=== PATIENT | male | born 1980 | race African-American/Black ===

== ENCOUNTER 2020-01-02 16:42 | Outpatient (CLI) | payer SELFPAY ==
[2020-01-02 17:22] LABS: Basophils % 0.4 %; Eosinophils # 0.2 10^3/uL (0.0-0.8); Eosinophils % 2.8 %; Hematocrit 44.1 % (42.0-52.0); Hemoglobin 13.4 g/dL (11.7-16.6); Lymphocytes # 3.2 10^3/uL (0.8-4.8); Lymphocytes % 38.6 %; Mean Corpuscular HGB Conc 30.4 g/dL (30.0-36.0); Mean Corpuscular Hemoglobin 26.4 pg (28.0-34.0); Mean Platelet Volume 12.6 fL (7.4-10.4); Monocytes # 0.6 10^3/uL (0.2-0.9); Monocytes % 7.3 %; Neutrophils # 4.18 10^3/uL (1.8-7.7); Neutrophils % 50.5 %; Nucleated Red Blood Cells % 0 %; Platelet Count 151 10^3/cmm (130-400); Red Blood Count 5.07 10^6/uL (4.1-5.3); Red Cell Distribution Width 13.7 % (12.1-15.1); White Blood Count 8.3 10^3/uL (4.0-10.0)
[2020-01-02 17:49] LABS: Alanine Aminotransferase 21 U/L (0-41); Albumin Level 4.2 g/dL (3.5-5.2); Alkaline Phosphatase 53 IU/L (40-130); Anion Gap 11.4 (5-19); Aspartate Amino Transferase 21 U/L (0-40); Blood Urea Nitrogen 12 mg/dL (6-20); Calcium 9.8 mg/dL (8.5-10.5); Carbon Dioxide 29 mmol/L (22-29); Chloride 103 mmol/L (98-107); Free T4 Free Thyroxine 0.93 ng/dL (0.82-1.77); Globulin 2.9 g/dL (1.3-4.6); Glomerular Filtration Rate 101.2 mL/min (90-130); Glucose 113 mg/dL (65-115); Osmolality Calculated 285 mOsm/kg (285-295); Potassium 4.4 mmol/L (3.5-5.1); Sodium 139 mmol/L (136-145); Thyroid Stimulating Hormone 1.61 uIU/mL (0.27-4.20); Total Bilirubin 0.2 mg/dL (0.15-1.2); Total Protein 7.1 g/dL (6.6-8.7)
== END 2020-01-02 16:43 | disposition home or self-care (01) ==
LOC: LAB 16:42
PROVIDERS: Visit Provider General Practice
DX: R22.2 Localized swelling, mass and lump, trunk (principal)
CPT/HCPCS: 80053; 84439; 84443; 85025

== ENCOUNTER 2020-01-08 16:35 | Emergency (ER) | payer SELFPAY ==
[2020-01-08 16:45] VITALS: BP 143/75; PULSE 82; RESP 16; TEMP 36.2; O2SAT 100; BMI 25.7
--- NOTE | 2020-01-08 17:14 | W.ED.BACK ---
HPI - Back Pain/Injury General: Chief Complaint: Back Pain/Injury Stated Complaint: back pain, lump on back Time Seen by Provider: 01/08/20 17:05 History of Present Illness: HPI Narrative: Patient is a 39-year-old male who comes to the ED with small lump on right side of thoracic back. Lump is tender and has been present for the last 2 weeks. Patient also has some swollen nodules on the front part of his neck that have been for the last 2 weeks as well. They are mildly tender. He denies any recent illnesses or sicknesses. Denies fever, chills, shortness of breath, nausea/vomiting, bladder or bowel symptoms. Associated symptoms: Deny abdominal pain, chills, dysuria, fatigue, fever(s), hematuria, nausea or vomiting Review of Systems Const: Denies: fever(s), chills or fatigue Eyes: Denies: change in vision or eye discomfort ENMT: Denies: throat pain, odynophagia, nasal discharge or nasal congestion Card: Denies: chest pain, palpitations, edema, swelling of feet/ankles, dyspnea on exertion or orthopnea Resp: Denies: dyspnea, productive cough or non-productive cough GI: Denies: abdominal pain, nausea, vomiting, diarrhea, constipation or hematochezia : Denies: flank pain, difficulty urinating, dysuria or hematuria Musc: Denies: neck pain, back pain or extremity swelling Skin/Breast: Denies: rash or new lesions Neuro: Denies: headache(s), numbness in extremities or weakness in extremities Dennis/Lymph: Reports: tender lymph nodes (anterior part of neck and ) PFS ED PFSH: Social History Smoking and tobacco status: light tobacco smoker Alcohol intake: never Substance/Drug Use: former Physical Exam Const: COMMON NORMALS: no acute distress, patient oriented x3, healthy appearing and alert GENERAL APPEARANCE: cooperative and comfortable HENMT: COMMON NORMALS: normocephalic HEAD & SCALP: normocephalic MOUTH: Normal oral and palatal mucosa present THROAT: posterior oropharynx normal and uvula midline Eye: COMMON NORMALS: Equal, round and reactive pupils present PUPIL: Yes Equal, round and reactive pupils present Neck/C-Spine: COMMON NORMALS: supple GENERAL: Yes normal visual inspection Lymph: LYMPHATIC: lymphadenopathy (Patient had palpable mildly tender lymph nodes anterior and posterior cervical chain. Patient also had a palpable lymph node on the right side of back.) OTHER: Lymph nodes are small and mobile. Resp: COMMON NORMALS: normal respiratory effort, No retractions, No use of accessory muscles and clear to auscultation bilaterally AUSCULTATION: clear to auscultation bilaterally Cardio: COMMON NORMALS: regular rate, regular rhythm, S1 normal heart sound present, S2 normal heart sound present, No gallops present (Cardio), No clicks present (Cardio), No murmurs present (Cardio) and Peripheral pulses 2+ throughout RATE: regular rate RHYTHM: regular rhythm HEART SOUNDS: S1 normal heart sound present and S2 normal heart sound present PERIPHERAL PULSES: Peripheral pulses 2+ throughout GI: COMMON NORMALS: Normal to inspection, nondistended, normoactive bowel sounds present, Soft to palpation, non-tender and no masses PALPATION: Yes Soft to palpation : COMMON NORMALS: Yes no CVA tenderness BLADDER/KIDNEY EXAM: Yes no CVA tenderness Back/Pelvis: COMMON NORMALS: no CVA tenderness Extremity: COMMON NORMALS: normal to inspection and no pedal edema Neuro: COMMON NORMALS: patient oriented x3 and moves all extremities SENSORIUM/ORIENTATION: Yes alert Skin: COMMON NORMALS: no rashes or lesions noted GENERAL SKIN EXAM: no rashes or lesions noted and dry skin Course Vital Signs: Vital signs: Vital Signs Temperature 97.1 F L 01/08/20 16:45 Pulse Rate 78 01/08/20 18:14 Respiratory Rate 18 01/08/20 18:14 Blood Pressure 144/72 01/08/20 18:14 Pulse Oximetry 99 01/08/20 18:14 MDM - Back Pain/Injury MDM Narrative: Medical decision making narrative: Patient is a 39-year-old male who comes to the ED with swollen and tender lymph nodes. Denies any other symptoms. Lymph nodes were palpable on the anterior and posterior cervical chains of neck and 1 palpable tender lymph node on the right side of back. Lymph nodes are small and mobile. Patient diagnosed with reactive lymphadenitis and sent home with a prescription for Augmentin and prednisone. He was told to follow-up with his PCP in the next 7 to 10 days for reevaluation. Return to ED precautions given. patient understood and agreed with plan. Discharge Plan Discharge Patient Disposition: Home Clinical Impression: Lymphadenitis Condition: Stable Prescriptions: New Augmentin 500-125 mg tablet 1 tab PO BID 7 Days Qty: 14 RF: 0 prednisone 20 mg tablet 20 mg PO TID 5 Days Qty: 15 RF: 0 No Action No Known Home Medications RF: 0 Discharge Orders: Discharge Order (Routine); Ordered 01/08/20 Ordered By: Leonidas Delaney Discharge Diet: Regular Discharge Activity: Resume usual activity Patient Instructions: Lymphadenitis Activity Restrictions/Additional Instructions: Follow-up with medical provider as directed in 7 days. Take medications as prescribed. Return to the ER or your medical provider if condition worsens. Please read and understand discharge instructions. If any questions, please ask. Discharge Date/Time: 01/08/20 18:18 Coding Level of Care Code ED Ammunition Components Inspector for Mitch Fwd Exam Comprehensive
[2020-01-08] MEDS: predniSONE 20 mg Tablet 60 MG PO (17:59)
[2020-01-08] MEDS: amoxicillin-clav 500-125 mg Tablet 1 TAB PO (17:59)
[2020-01-08 18:14] VITALS: BP 144/72; PULSE 78; RESP 18; O2SAT 99
== END 2020-01-08 18:18 | disposition home or self-care (01) ==
PROVIDERS: Emergency Provider Physician Assistant
DX: I88.9 Nonspecific lymphadenitis, unspecified (principal); F17.210 Nicotine dependence, cigarettes, uncomplicated
CPT/HCPCS: 12345; 99281; 99283; J7512

== ENCOUNTER 2020-09-26 14:31 | Emergency (ER) | payer SELFPAY ==
[2020-09-26 14:58] VITALS: BP 126/83; PULSE 114; RESP 18; TEMP 36.2; O2SAT 97; BMI 25.1
[2020-09-26 15:02] VITALS: BP 129/72; PULSE 100; RESP 18; O2SAT 98
--- NOTE | 2020-09-26 15:16 | W.ED.NAVMDI ---
HPI - Nausea/Vomiting/Diarrhea General: Chief complaint: Nausea/Vomiting/Diarrhea Stated complaint: NAUSEA, VOMITING, CHILLS AND DIAREAH Time Seen by Provider: 09/26/20 15:08 History of Present Illness: HPI Narrative: The patient is a 40-year-old male with no significant past medical history who comes to the ER complaining of flulike symptoms and diarrhea for the past 4 days. He says approximately 4 days ago he ate what he thought was raw pork and then developed a fever, chills, belly cramping, body aches, and diarrhea. The diarrhea has persisted through the entire 4 days. He had a headache for the first 2 days which has since resolved. He has not had Covid that he knows of and has not been vaccinated. He says he has no appetite and he does eat some however it runs right through him. Heart rate 114 on arrival MD elicited complaint: diarrhea and abdominal pain Onset (ago): day(s) (4) Description of diarrhea: lose Associated nausea: No Associated abdominal pain: Yes Location of pain: Diffuse Radiation: diffuse Pain consistency: intermittent Severity: moderate Quality: cramping Exacerbating factors: eating and bowel movement Relieving factors: none Context: possible food poisoning Associated symtoms: Reports fevers/chills, headache(s) and anorexia; Denies anxiety, change in vision, chest pain, fatigue, nausea or palpitations Review of Systems General: Reports: 10 or more systems reviewed and unremarkable except in HPI and below Const: Reports: fever(s), chills and body aches; Denies: fatigue Eyes: Denies: change in vision, blurry vision or eye redness ENMT: Denies: throat pain, swelling of lips/tongue, ear or mastoid pain or nasal congestion Card: Denies: chest pain, palpitations, irregular heart rhythm, edema, dyspnea on exertion or orthopnea Resp: Denies: dyspnea, productive cough or non-productive cough GI: Reports: abdominal pain and diarrhea; Denies: nausea or vomiting : Denies: flank pain, urinary frequency or urinary urgency Musc: Denies: neck pain, back pain, extremity pain, joint pain, joint redness, limited range of motion or muscle weakness Skin/Breast: Denies: rash, pruritus, erythema, skin pain or skin tenderness Neuro: Reports: headache(s) Psych: Denies: anxiety or depression Endo: Denies: polyuria All/Imm: Denies: urticaria, throat swelling or tongue swelling PFSH ED PFSH: Social History Smoking and tobacco status: light tobacco smoker Alcohol intake: never Physical Exam Const: COMMON NORMALS: no acute distress, average body habitus, patient oriented x3, no limitations, healthy appearing, alert and well nourished GENERAL APPEARANCE: cooperative, comfortable, well kempt and well developed ORIENTATION/CONSCIOUSNESS: Yes awake, Yes oriented to person, Yes oriented to place and Yes oriented to time HENMT: COMMON NORMALS: normocephalic, external ears normal and Normal external nose present HEAD & SCALP: normal to inspection and normocephalic NOSE: Normal external nose present EXTERNAL EAR: Yes external ears normal MOUTH: Normal oral and palatal mucosa present THROAT: posterior oropharynx normal Eye: COMMON NORMALS: Equal, round and reactive pupils present and EOMs intact bilaterally GENERAL EYE: appearance normal, both eyes and all related structures PUPIL: Yes Equal, round and reactive pupils present Neck/C-Spine: COMMON NORMALS: full ROM, no lymphadenopathy, no meningeal signs and no JVD GENERAL: Yes normal visual inspection Lymph: LYMPHATIC: no lymphadenopathy noted Chest: COMMONS NORMALS: normal inspection of the chest and normal palpation of entire chest wall Resp: COMMON NORMALS: normal respiratory effort, No retractions, No use of accessory muscles, clear to auscultation bilaterally and percussion normal EFFORT & INSPECTION: Yes able to speak in complete sentences AUSCULTATION: clear to auscultation bilaterally PERCUSSION: percussion normal Cardio: COMMON NORMALS: no JVD, regular rhythm, S1 normal heart sound present, S2 normal heart sound present and Peripheral pulses 2+ throughout RATE: tachycardic RHYTHM: regular rhythm HEART SOUNDS: S1 normal heart sound present and S2 normal heart sound present PERIPHERAL PULSES: Peripheral pulses 2+ throughout GI: COMMON NORMALS: Normal to inspection, nondistended, normoactive bowel sounds present, Soft to palpation, non-tender and no masses INSPECTION: Yes normal to inspection PALPATION: Yes Soft to palpation : COMMON NORMALS: Yes no CVA tenderness BLADDER/KIDNEY EXAM: Yes no CVA tenderness Back/Pelvis: COMMON NORMALS: no CVA tenderness, thoracic and lumbar spine normal to inspection, no thoracic nor lumbar tenderness and thoraco-lumbar ROM normal Extremity: COMMON NORMALS: normal to inspection, full ROM, capillary refill normal, no joint enlargement and no pedal edema GENERAL: Yes normal exam except as noted Neuro: COMMON NORMALS: patient oriented x3, CN's II-XII intact bilaterally, moves all extremities, no focal motor deficits, no sensory deficits noted and gait normal SENSORIUM/ORIENTATION: Yes alert, Yes oriented to person, Yes oriented to place and Yes oriented to time MENINGEAL SIGNS: Yes no meningeal signs Psych: COMMON NORMALS: mental status grossly normal, Normal thought process present, cooperative, normal affect and speech normal APPEARANCE: Yes well kempt ATTITUDE: Yes calm SPEECH: Yes normal speech THOUGHT PROCESS: Normal thought process present Skin: COMMON NORMALS: no rashes or lesions noted GENERAL SKIN EXAM: no rashes or lesions noted Course Vital Signs: Vital signs: Vital Signs Temperature 97.2 F L 09/26/20 14:58 Pulse Rate 100 09/26/20 15:51 Respiratory Rate 18 09/26/20 15:51 Blood Pressure 129/76 09/26/20 15:51 Pulse Oximetry 98 09/26/20 15:51 MDM - Nausea/Vomiting/Diarrhea MDM Narrative: Medical decision making narrative: Patient comes in with viral syndrome and diarrhea. Blood work was mostly normal except mildly elevated white count. He was given a liter of fluids, Toradol and his abdominal cramping subsided. He has never been tender in his belly. Recommended returning to the ER with worsening symptoms for a belly CT to check his appendix. He has no abdominal tenderness and feels better. Stable for discharge. Follow-up with primary in 2 days to monitor improvement of symptoms. ER with worsening symptoms at any time Lab Data: Labs: Lab Results 09/26/20 09/26/20 09/26/20 Range/Units 15:16 15:16 15:16 WBC 12.1 H (4.0-10.0) 10^3/ uL RBC 5.34 H (4.1-5.3) 10^6/u L Hgb 14.2 (11.7-16.6) g/dL Hct 43.9 (42.0-52.0) % MCV 82.2 (80-94) fL MCH 26.6 L (28.0-34.0) pg MCHC 32.3 (30.0-36.0) g/dL RDW 12.9 (12.1-15.1) % Plt Count 163 (130-400) 10^3/c mm MPV 11.1 H (7.4-10.4) fL Neut % (Auto) 74.4 % Lymph % (Auto) 14.2 % Canyon % (Auto) 10.8 % Eos % (Auto) 0.2 % Baso % (Auto) 0.2 % Neut # (Auto) 9.03 H (1.8-7.7) 10^3/u L Lymph # (Auto) 1.7 (0.8-4.8) 10^3/u L Canyon # (Auto) 1.3 H (0.2-0.9) 10^3/u L Eos # (Auto) 0.0 (0.0-0.8) 10^3/u L Baso # (Auto) 0.0 (0.0-0.1) 10^3/u L Nucleated RBC % (a uto) 0 % Nucleated RBCs # 0.0 /100WBC Sodium 134 L (136-145) mmol/L Potassium 3.8 (3.5-5.1) mmol/L Chloride 98 (98-107) mmol/L Carbon Dioxide 26 (22-29) mmol/L Anion Gap 13.8 (5-19) BUN 9 (6-20) mg/dL Creatinine 1.0 (0.7-1.2) mg/dL GFR Calculation 100.7 (90-130) mL/min Glucose 134 H (65-115) mg/dL Calculated Osmolal ity 279 L (285-295) mOsm/k g Lactate 1.2 (0.5-2.2) mmol/L Calcium 8.8 (8.5-10.5) mg/dL Total Bilirubin 0.3 (0.15-1.2) mg/dL AST 22 (0-40) U/L ALT 15 (0-41) U/L Alkaline Phosphata se 44 (40-130) IU/L Total Protein 7.1 (6.6-8.7) g/dL Albumin 4.0 (3.5-5.2) g/dL Globulin 3.1 (1.3-4.6) g/dL Lipase 49 (13-60) U/L Urine Color (Yellow) Urine Appearance (CLEAR) Urine pH (5-7) Ur Specific Gravit y (1.005-1.030) Urine Protein (Negative) Urine Glucose (UA) (Normal) Urine Ketones (Negative) Urine Blood (Negative) Urine Nitrate (Negative) Urine Bilirubin (Negative) Urine Urobilinogen (Negative) mg/dL Ur Leukocyte Brenna ase (Negative) SARS-CoV-2 Ag (Rap id) (Negative) 09/26/20 09/26/20 Range/Units 15:30 15:55 WBC (4.0-10.0) 10^3/ uL RBC (4.1-5.3) 10^6/u L Hgb (11.7-16.6) g/dL Hct (42.0-52.0) % MCV (80-94) fL MCH (28.0-34.0) pg MCHC (30.0-36.0) g/dL RDW (12.1-15.1) % Plt Count (130-400) 10^3/c mm MPV (7.4-10.4) fL Neut % (Auto) % Lymph % (Auto) % Canyon % (Auto) % Eos % (Auto) % Baso % (Auto) % Neut # (Auto) (1.8-7.7) 10^3/u L Lymph # (Auto) (0.8-4.8) 10^3/u L Canyon # (Auto) (0.2-0.9) 10^3/u L Eos # (Auto) (0.0-0.8) 10^3/u L Baso # (Auto) (0.0-0.1) 10^3/u L Nucleated RBC % (a uto) % Nucleated RBCs # /100WBC Sodium (136-145) mmol/L Potassium (3.5-5.1) mmol/L Chloride (98-107) mmol/L Carbon Dioxide (22-29) mmol/L Anion Gap (5-19) BUN (6-20) mg/dL Creatinine (0.7-1.2) mg/dL GFR Calculation (90-130) mL/min Glucose (65-115) mg/dL Calculated Osmolal ity (285-295) mOsm/k g Lactate (0.5-2.2) mmol/L Calcium (8.5-10.5) mg/dL Total Bilirubin (0.15-1.2) mg/dL AST (0-40) U/L ALT (0-41) U/L Alkaline Phosphata se (40-130) IU/L Total Protein (6.6-8.7) g/dL Albumin (3.5-5.2) g/dL Globulin (1.3-4.6) g/dL Lipase (13-60) U/L Urine Color Yellow (Yellow) Urine Appearance Clear (CLEAR) Urine pH 5 (5-7) Ur Specific Gravit y 1.025 (1.005-1.030) Urine Protein Neg (Negative) Urine Glucose (UA) Norm (Normal) Urine Ketones Negative (Negative) Urine Blood Neg (Negative) Urine Nitrate Negative (Negative) Urine Bilirubin Neg (Negative) Urine Urobilinogen Norm (Negative) mg/dL Ur Leukocyte Brenna ase Negative (Negative) SARS-CoV-2 Ag (Rap id) Negative (Negative) Discharge Plan Discharge Patient Disposition: Home Clinical Impression: Gastroenteritis Condition: Stable Prescriptions: No Action No Known Home Medications RF: 0 Discharge Orders: Discharge ED (Routine); Ordered 09/26/20 Ordered By: Jaren Guzman Discharge Diet: Advance as tolerated Discharge Activity: Resume usual activity Patient Instructions: Gastroenteritis (ED), Viral Syndrome (ED), Opioid Safety Activity Restrictions/Additional Instructions: You came in complaining of 4 days of fever, chills, abdominal cramping and diarrhea. These are consistent with a viral syndrome. Please take Tylenol and ibuprofen at home as well as make sure you drink lots of water to stay hydrated. If your belly starts to hurt you please return to the ER and get a CAT scan to make sure your appendix and abdomen is fine. Follow-up with your primary care physician in 2 days to monitor improvement of your symptoms and return to the ER at any time with worrisome or worsening symptoms Coding Level of Care Code ED Conveyor Tender for Mitch Fong Exam Comprehensive
[2020-09-26] MEDS: ketorolac 30 mg/mL INJ 15 MG IVP (15:20)
[2020-09-26] MEDS: sodium chloride 0.9% 1,000 ML 999 ML IV (15:20)
[2020-09-26 15:22] LABS: Basophils % 0.2 %; Eosinophils % 0.2 %; Hematocrit 43.9 % (42.0-52.0); Hemoglobin 14.2 g/dL (11.7-16.6); Lymphocytes # 1.7 10^3/uL (0.8-4.8); Lymphocytes % 14.2 %; Mean Corpuscular HGB Conc 32.3 g/dL (30.0-36.0); Mean Corpuscular Hemoglobin 26.6 pg (28.0-34.0); Mean Corpuscular Volume 82.2 fL (80-94); Mean Platelet Volume 11.1 fL (7.4-10.4); Monocytes # 1.3 10^3/uL (0.2-0.9); Monocytes % 10.8 %; Neutrophils # 9.03 10^3/uL (1.8-7.7); Neutrophils % 74.4 %; Nucleated Red Blood Cells % 0 %; Platelet Count 163 10^3/cmm (130-400); Red Blood Count 5.34 10^6/uL (4.1-5.3); Red Cell Distribution Width 12.9 % (12.1-15.1); White Blood Count 12.1 10^3/uL (4.0-10.0)
[2020-09-26 15:51] VITALS: BP 129/76; PULSE 100; RESP 18; O2SAT 98
[2020-09-26 15:53] LABS: Alanine Aminotransferase 15 U/L (0-41); Alkaline Phosphatase 44 IU/L (40-130); Anion Gap 13.8 (5-19); Aspartate Amino Transferase 22 U/L (0-40); Blood Urea Nitrogen 9 mg/dL (6-20); Calcium 8.8 mg/dL (8.5-10.5); Carbon Dioxide 26 mmol/L (22-29); Chloride 98 mmol/L (98-107); Globulin 3.1 g/dL (1.3-4.6); Glomerular Filtration Rate 100.7 mL/min (90-130); Glucose 134 mg/dL (65-115); Lipase 49 U/L (13-60); Osmolality Calculated 279 mOsm/kg (285-295); Potassium 3.8 mmol/L (3.5-5.1); Sodium 134 mmol/L (136-145); Total Bilirubin 0.3 mg/dL (0.15-1.2); Total Protein 7.1 g/dL (6.6-8.7)
[2020-09-26 15:53] LABS: Add Urine Microscopic? NO; Charge for UA Resulting for Rev
[2020-09-26 15:54] LABS: Lactate (Lactic Acid level) 1.2 mmol/L (0.5-2.2)
[2020-09-26 16:09] LABS: Bilirubin Urine Neg (Negative); Blood Urine Neg (Negative); Glucose Urine UA Norm (Normal); Ketones Urine Negative (Negative); Leukocyte Esterase Urine Negative (Negative); Nitrate Urine Negative (Negative); Protein Urine Neg (Negative); Specific Gravity, Urine 1.025 (1.005-1.030); Urine Appearance Clear (CLEAR); Urine Color Yellow (Yellow); Urobilinogen Urine Norm (Negative); pH Urine 5 (5-7)
[2020-09-26 16:37] LABS: SARS Covid-2 Antigen Negative (Negative)
[2020-09-26 17:33] VITALS: BP 123/68; PULSE 90; RESP 18; TEMP 36.4; O2SAT 99
== END 2020-09-26 17:35 | disposition home or self-care (01) ==
PROVIDERS: Emergency Provider Family Medicine
DX: K52.9 Noninfective gastroenteritis and colitis, unspecified (principal); F17.210 Nicotine dependence, cigarettes, uncomplicated
CPT/HCPCS: 80053; 81003; 83605; 83690; 85025; 87426; 96361; 96374; 99283; J1885; J7030

== ENCOUNTER 2021-01-02 12:01 | Emergency (ER) | payer SELFPAY ==
[2021-01-02 12:09] VITALS: BP 132/72; PULSE 74; RESP 9; TEMP 37.4; O2SAT 99; BMI 25.7
--- NOTE | 2021-01-02 12:20 | ED_ITS ---
HPI - Dental/Oral General: Chief complaint: Dental/Oral Stated complaint: TOOTH ACHE/INFECTION Time Seen by Provider: 01/02/21 12:09 History of Present Illness: HPI Narrative: Tooth been bothering for the last couple days. Had a history with pain with this previously had a feeling that did not stay in. Patient is current drug user. Patient has been in rehab at [facility] for dependency. Patient does not have a local dentist. MD Complaint: tooth pain Teeth map: 1. Caries Onset (ago): day(s) Duration: constant Severity: mild Context: history of dental caries and poor dental care Associated symptoms: Denies fever(s) Review of Systems Const: Denies: fever(s) or chills ENMT: Reports: dental pain Psych: Denies: anxiety PFSH ED PFSH: Social History Smoking and tobacco status: light tobacco smoker Alcohol intake: never Physical Exam Const: COMMON NORMALS: no acute distress GENERAL APPEARANCE: cooperative HENMT: COMMON NORMALS: Normal external nose present FACE & SINUS: normal facial exam NOSE: Normal external nose present MOUTH: Normal oral and palatal mucosa present TEETH & GINGIVA IMAGES: 1. Dental caries, no abscess, gum is pink Psych: COMMON NORMALS: mental status grossly normal Course Vital Signs: Vital signs: Vital Signs Temperature 99.4 F 01/02/21 12:09 Pulse Rate 74 01/02/21 12:09 Respiratory Rate 9 L 01/02/21 12:09 Blood Pressure 132/72 01/02/21 12:09 Pulse Oximetry 99 01/02/21 12:09 Discharge Plan Discharge Patient Disposition: Home Clinical Impression: Dental caries, Drug abuse, episodic use Condition: Stable Prescriptions: New doxycycline hyclate 100 mg capsule 100 mg PO BID 7 Days Qty: 14 RF: 0 Lidocaine Viscous 2 % solution 1 applic mucous membrane Q4H PRN (Reason: pain) Qty: 100 RF: 0 Discharge Orders: Discharge ED (Routine); Ordered 01/02/21 Ordered By: Leif Rockwell Discharge Diet: Usual diet Discharge Activity: Resume usual activity Patient Instructions: Dental Caries (ED) Activity Restrictions/Additional Instructions: Use medicine as prescribed. Call dentist office tomorrow and get appointment scheduled to get toooth taken care of. Coding Level of Care Code ED Casting Wheel Operator Helper for Chg Fwd Exam Expanded Problem Focused
== END 2021-01-02 12:49 | disposition home or self-care (01) ==
PROVIDERS: Emergency Provider Nurse Practitioner Family
DX: K02.9 Dental caries, unspecified (principal); F19.10 Other psychoactive substance abuse, uncomplicated; F17.210 Nicotine dependence, cigarettes, uncomplicated
CPT/HCPCS: 99281

== ENCOUNTER 2021-01-03 01:06 | Emergency (ER) | payer SELFPAY ==
[2021-01-03 01:14] VITALS: BP 149/88; PULSE 104; RESP 18; TEMP 37.8; O2SAT 99; BMI 26.4
--- NOTE | 2021-01-03 01:25 | ED_ITS ---
HPI - Dental/Oral General: Chief complaint: Dental/Oral Stated complaint: fever/seen earlier for oral pain Time Seen by Provider: 01/03/21 01:24 History of Present Illness: HPI Narrative: Patient comes in today with complaints of facial swelling to the right labial fold. Patient also has tenderness and pain to the right lateral incisor. Patient appears mildly unwell but not toxic. Patient reports chills and fever. Patient also reports that his has had chills and fever. Patient is concerned for COVID-19 also. Associated symptoms: Reports fever(s) Review of Systems General: Reports: 10 or more systems reviewed and unremarkable except in HPI and below Const: Reports: fever(s) ENMT: Reports: dental pain PFSH ED PFSH: Social History Smoking and tobacco status: light tobacco smoker Alcohol intake: never Physical Exam Const: COMMON NORMALS: no acute distress and patient oriented x3 GENERAL APPEARANCE: cooperative HENMT: COMMON NORMALS: TM's normal bilaterally and Normal external nose present HEAD & SCALP: normal to inspection and other (Swelling is noted to the labial fold of the right side. ) NOSE: Normal external nose present TYMPANIC MEMBRANE: TM's normal bilaterally MOUTH: other (Patient has decay to the right lateral incisor with surrounding redness) THROAT: posterior oropharynx normal Eye: GENERAL EYE: appearance normal, both eyes and all related structures Neck/C-Spine: COMMON NORMALS: full ROM Lymph: LYMPHATIC: no lymphadenopathy noted Chest: COMMONS NORMALS: normal inspection of the chest Resp: COMMON NORMALS: normal respiratory effort EFFORT & INSPECTION: Yes able to speak in complete sentences Cardio: COMMON NORMALS: regular rate and regular rhythm RATE: regular rate RHYTHM: regular rhythm GI: COMMON NORMALS: non-tender Extremity: COMMON NORMALS: normal to inspection Neuro: COMMON NORMALS: patient oriented x3 and moves all extremities Psych: COMMON NORMALS: mental status grossly normal and cooperative Skin: COMMON NORMALS: no rashes or lesions noted GENERAL SKIN EXAM: no rashes or lesions noted Course Vital Signs: Vital signs: Vital Signs Temperature 100.1 F H 01/03/21 01:14 Pulse Rate 88 01/03/21 02:33 Respiratory Rate 18 01/03/21 02:33 Blood Pressure 149/88 01/03/21 01:14 Pulse Oximetry 98 01/03/21 02:33 MDM - Dental/Oral MDM Narrative: Medical decision making narrative: Comes in today for complaints of right labial nasal fold swelling and tenderness with redness. Patient also has dental pain. On exam patient has decay to the right lateral incisor, #7 tooth, with swelling and redness to the gingiva. Respirations are even lungs are clear to auscultation. Differential diagnosis includes but not limited to dental infection, dental abscess, dental caries. Patient was started on doxycycline today but states that he has not started it yet. I think with the facial swelling doxycycline would not be appropriate and we need to switch to clindamycin. Patient was also given a dose of hydrocodone for his pain. Patient was also concerned about COVID-19 and testing was performed. Lab Data: Labs: Lab Results 01/03/21 Range/Units 01:51 SARS-CoV-2 Ag (Rap id) Negative (Negative) Discharge Plan Discharge Patient Disposition: Home Clinical Impression: Dental abscess Fever Qualifiers: Fever type: unspecified Qualified Code(s): R50.9 - Fever, unspecified Condition: Stable Prescriptions: New hydrocodone-acetaminophen 5-325 mg tablet 1 tab PO Q6H PRN (Reason: pain (scale score 7-10)) Qty: 6 RF: 0 clindamycin HCl 150 mg capsule 450 mg PO Q8H 7 Days Qty: 63 RF: 0 Discontinued doxycycline hyclate 100 mg capsule 100 mg PO BID 7 Days Qty: 14 RF: 0 No Action Lidocaine Viscous 2 % solution 1 applic mucous membrane Q4H PRN (Reason: pain) Qty: 100 RF: 0 Discharge Orders: Discharge ED (Routine); Ordered 01/03/21 Ordered By: Go Chakraborty Discharge Diet: Usual diet Discharge Activity: Increase activity as tolerated Patient Instructions: Dental Abscess (ED), Opioid Safety Activity Restrictions/Additional Instructions: Take antibiotic as prescribed. Drink plenty of water with antibiotic. Follow- up with dentist for definitive care. Use ice to the area for further pain relief. Use acetaminophen and ibuprofen to control pain. Use hydrocodone for breakthrough pain. Coding Level of Care Code ED Waterproof Bag Sewer for Mitch Fwd Exam Comprehensive
[2021-01-03] MEDS: HYDROcodone-acetaminophen 7.5-325 mg Tablet 1 TAB PO (01:46)
[2021-01-03] MEDS: clindamycin 150 mg Capsule 450 MG PO (01:47)
[2021-01-03 02:31] LABS: SARS Covid-2 Antigen Negative (Negative)
[2021-01-03 02:33] VITALS: PULSE 88; RESP 18; O2SAT 98
== END 2021-01-03 02:35 | disposition home or self-care (01) ==
PROVIDERS: Emergency Provider Nurse Practitioner Family
DX: K04.7 Periapical abscess without sinus (principal); F17.200 Nicotine dependence, unspecified, uncomplicated
CPT/HCPCS: 87426; 99283

== ENCOUNTER 2021-01-30 15:16 | Emergency (ER) | payer SELFPAY ==
[2021-01-30 15:37] VITALS: BP 125/84; PULSE 65; RESP 18; TEMP 36.7; O2SAT 98; BMI 26.4
--- NOTE | 2021-01-30 15:41 | ED_ITS ---
HPI - Dental/Oral General: Chief complaint: Dental/Oral Stated complaint: dental pain Time Seen by Provider: 01/30/21 15:35 Source: patient Mode of arrival: ambulatory Limitations: no limitations History of Present Illness: HPI Narrative: Patient is a 40-year-old male presents to ED today with complaint of dental pain, gingival swelling, and some swelling to the right side of his face that he has noticed over the past several days. Patient reports he had a previous infection several weeks ago and treated with clindamycin with good results. He unfortunately never followed up with a dentist. MD Complaint: tooth pain Teeth map: 1. severe decay, gingival swelling 2. severe decay/swelling Onset (ago): day(s) Duration: constant Severity: moderate Context: history of dental caries and poor dental care Associated symptoms: Reports gum swelling; Denies ear or mastoid pain, fever(s) or odynophagia Treatment prior to arrival: oral analgesic Review of Systems Const: Denies: fever(s), chills, body aches, fatigue or malaise Eyes: Denies: change in vision, blurry vision or photophobia ENMT: Reports: dental pain; Denies: throat pain, odynophagia, ear or mastoid pain, nasal discharge or nasal congestion Card: Denies: chest pain Resp: Denies: dyspnea GI: Denies: abdominal pain, nausea, vomiting or diarrhea Musc: Denies: neck pain or back pain Skin/Breast: Denies: rash Neuro: Denies: headache(s) PFS ED PFSH: Social History Smoking and tobacco status: light tobacco smoker Alcohol intake: never Physical Exam Const: COMMON NORMALS: no acute distress, average body habitus, patient oriented x3, no limitations, healthy appearing, alert and well nourished HENMT: COMMON NORMALS: normocephalic and atraumatic HEAD & SCALP: normal to inspection, normocephalic and atraumatic FACE & SINUS IMAGES: 1. very mild swelling present; no abscess MOUTH: other (floor of mouth is soft and non-raised) TEETH & GINGIVA: Yes poor dentition THROAT: posterior oropharynx normal, tonsils normal and uvula midline Neck/C-Spine: COMMON NORMALS: no lymphadenopathy GENERAL: No anterior neck swelling and No submandibular swelling Cardio: COMMON NORMALS: regular rate and regular rhythm RATE: regular rate RHYTHM: regular rhythm Neuro: COMMON NORMALS: patient oriented x3 SENSORIUM/ORIENTATION: Yes alert Course Vital Signs: Vital signs: Vital Signs Temperature 98.0 F 01/30/21 15:37 Pulse Rate 66 01/30/21 15:43 Respiratory Rate 16 01/30/21 15:43 Blood Pressure 131/70 01/30/21 15:43 Pulse Oximetry 99 01/30/21 15:43 MDM - Dental/Oral MDM Narrative: Medical decision making narrative: Discussed importance of dental follow up. Given dental resource handout. Discharge Plan Discharge Patient Disposition: Home Clinical Impression: Dental caries, Toothache Condition: Stable Prescriptions: New clindamycin HCl 300 mg capsule 300 mg PO Q6H 7 Days Qty: 28 RF: 0 Discontinued hydrocodone-acetaminophen 5-325 mg tablet 1 tab PO Q6H PRN (Reason: pain (scale score 7-10)) Qty: 6 RF: 0 No Action Lidocaine Viscous 2 % solution 1 applic mucous membrane Q4H PRN (Reason: pain) Qty: 100 RF: 0 Discharge Orders: Discharge ED (Routine); Ordered 01/30/21 Ordered By: Nica Mondragon Patient Instructions: Dental Caries (ED), Toothache (ED) Coding Level of Care Code ED Cardiographer for Mitch Fong
[2021-01-30 15:43] VITALS: BP 131/70; PULSE 66; RESP 16; O2SAT 99
[2021-01-30 15:52] VITALS: BP 137/70; PULSE 62; RESP 18; O2SAT 100
== END 2021-01-30 15:52 | disposition home or self-care (01) ==
PROVIDERS: Emergency Provider Physician Assistant
DX: K02.9 Dental caries, unspecified (principal); F17.210 Nicotine dependence, cigarettes, uncomplicated
CPT/HCPCS: 99281

== ENCOUNTER 2021-07-19 12:36 | Emergency (ER) | payer SELFPAY ==
[2021-07-19 12:42] VITALS: BP 122/72; PULSE 77; RESP 18; TEMP 36.5; O2SAT 100; BMI 25.0
--- NOTE | 2021-07-19 12:57 | XR_ITS ---
WS: [id number] RIGHT HAND: 3 VIEW(S) TECHNIQUE: PA, oblique and lateral. HISTORY: pain and swelling on hand COMPARISON: None available. No acute fracture or dislocation. Mild soft tissue edema along the dorsal wrist and hand. Single erosion second metacarpal head. No foreign body. XR/XR hand RT min 3V* [id number] IMPRESSION: Mild cellulitis along the dorsal wrist and hand.
--- NOTE | 2021-07-19 13:40 | ED_ITS ---
HPI - General Adult General: Chief complaint: General Medical Stated complaint: Bite amber on hand Time Seen by Provider: 07/19/21 13:29 History of Present Illness: Patient is a 40-year-old male comes to the ED with right hand pain and swelling. Patient says approximately 2 to 3 days ago he started developing a small tender red bump on dorsal side of right hand. Over the past couple days is just gotten larger and more painful. Denies any known injury, bite or any other injury to skin to cause complaint. Patient also has red right eye and he woke up this morning and that had some mucus/purulent drainage of right eye. Denies any known injury to right eye. Patient did say that he had pinkeye of his left eye which resolved right before the start of right eye symptoms. Associated symptoms: Deny chest pain, dyspnea, headache(s), nausea, rash, palpitations or vomiting Review of Systems Const: Denies: fever(s), chills or fatigue Eyes: Reports: eye discharge (right eye) and eye redness (right eye); Denies: change in vision or eye discomfort ENMT: Denies: throat pain, odynophagia, nasal discharge or nasal congestion Card: Denies: chest pain, palpitations, edema, swelling of feet/ankles, dyspnea on exertion or orthopnea Resp: Denies: dyspnea, productive cough or non-productive cough GI: Denies: abdominal pain, nausea, vomiting, diarrhea, constipation or hematochezia : Denies: flank pain, difficulty urinating, dysuria or hematuria Musc: Denies: neck pain, back pain or extremity swelling Skin/Breast: Reports: new lesions (Swollen erythemic and tender nodule on dorsal aspect of right hand.); Denies: rash Neuro: Denies: headache(s) [facility] ED PFSH: Medical History No pertinent family history Surgical History No pertinent past surgical history Social History Smoking and tobacco status: light tobacco smoker Alcohol intake: never Physical Exam Const: COMMON NORMALS: no acute distress, patient oriented x3, healthy appearing and alert GENERAL APPEARANCE: cooperative and comfortable HENMT: COMMON NORMALS: normocephalic HEAD & SCALP: normocephalic MOUTH: Normal oral and palatal mucosa present THROAT: posterior oropharynx normal and uvula midline Eye: COMMON NORMALS: Equal, round and reactive pupils present and EOMs intact bilaterally CONJUNCTIVA: Yes conjunctival abnormal positive right conjunctival injection PUPIL: Yes Equal, round and reactive pupils present Neck/C-Spine: COMMON NORMALS: supple GENERAL: Yes normal visual inspection Resp: COMMON NORMALS: normal respiratory effort, No retractions, No use of accessory muscles and clear to auscultation bilaterally AUSCULTATION: clear to auscultation bilaterally Cardio: COMMON NORMALS: regular rate, regular rhythm, S1 normal heart sound present, S2 normal heart sound present, No gallops present (Cardio), No clicks present (Cardio), No murmurs present (Cardio) and Peripheral pulses 2+ throughout RATE: regular rate RHYTHM: regular rhythm HEART SOUNDS: S1 normal heart sound present and S2 normal heart sound present PERIPHERAL PULSES: Peripheral pulses 2+ throughout GI: COMMON NORMALS: Normal to inspection, nondistended, normoactive bowel sounds present, Soft to palpation, non-tender and no masses PALPATION: Yes Soft to palpation : COMMON NORMALS: Yes no CVA tenderness BLADDER/KIDNEY EXAM: Yes no CVA tenderness Back/Pelvis: COMMON NORMALS: no CVA tenderness Neuro: COMMON NORMALS: patient oriented x3 SENSORIUM/ORIENTATION: Yes alert GAIT: Yes Normal gait present Skin: LESIONS: lesion noted (Dorsal aspect of right hand) Dorsal aspect of right hand Lesion type: Yes nodule Lesion size (cm): 0.5 Lesion location: dorsal aspect of right hand Lesion color: Yes erythematous Lesion consistency: Yes fluctuent and No indurated Lesion surface: Yes dry and Yes raised Lesion tenderness: Yes moderate Lesion finding consistent with: Yes other (superficial abscess) Procedures Abscess I/D Site: hand (right dorsal aspect of hand) Side (if applicable): right Sedation/analgesia: none Local Anesthetic: lidocaine 1% and with epi Amount of anesthesia used (mL): 3 Technique: incised with #11 blade Amount of fluid expressed (mL): 1 Irrigation: Yes Packing used?: none Course Vital Signs: Vital signs: Vital Signs Temperature 97.7 F 07/19/21 12:42 Pulse Rate 75 07/19/21 14:40 Respiratory Rate 16 07/19/21 14:40 Blood Pressure 122/72 07/19/21 12:42 Pulse Oximetry 99 07/19/21 14:40 MDM - General Adult Medical Decision Making Patient is a 40-year-old male and he has superficial abscess with surrounding cellulitis on right hand. He also has some conjunctivitis of his right eye. Denies any injury or trauma to cause hand or eye symptoms. X-ray of right hand shows no acute fractures but shows some mild cellulitis on the dorsal wrist and hand. Abscess I&D was performed and lidocaine 1% with epi was used as local. With small amount of purulent drainage came out. Patient was diagnosed with an abscess with cellulitis and conjunctivitis of the right eye. He was discharged home with a prescription for Bactrim and Maxitrol. He was told to follow-up with his PCP in 5 to 7 days for reevaluation. Return to ED precautions given. Patient understood and agree with plan. Lab Data Radiology Impressions Hand X-Ray 07/19/21 12:57 IMPRESSION: Mild cellulitis along the dorsal wrist and hand. Discharge Plan Discharge Patient Disposition: Home Clinical Impression: Abscess Cellulitis Qualifiers: Site of cellulitis: extremity Site of cellulitis of extremity: upper extremity Laterality: right Qualified Code(s): L03.113 - Cellulitis of right upper limb Conjunctivitis of right eye Qualifiers: Conjunctivitis type: acute Acute conjunctivitis type: unspecified Qualified Code(s): H10.31 - Unspecified acute conjunctivitis, right eye Condition: Stable Prescriptions: New Bactrim DS 800-160 mg tablet 1 tab PO BID 7 Days Qty: 14 0RF Maxitrol 3.5mg/mL-10,000 unit/mL-0.1 % drops,suspension 2 drp ophthalmic (eye) Q8H 5 Days Qty: 5 0RF No Action Lidocaine Viscous 2 % solution 1 applic mucous membrane Q4H PRN (Reason: pain) Qty: 100 0RF Discharge Orders: Discharge ED (Routine); Ordered 07/19/21 Ordered By: Leonidas Delaney Discharge Diet: Regular Discharge Activity: Increase activity as tolerated Patient Instructions: Cellulitis (ED), Abscess (ED), Conjunctivitis (ED) Activity Restrictions/Additional Instructions: Follow-up with medical provider as directed in the next 5 to 7 days for reevaluation.Take medications as prescribed. Return to the ER or your medical provider if condition worsens. Please read and understand discharge instructions. Thank you for choosing [facility] for your healthcare needs today. Please realize this is an emergency room and that we are providing you with a medical screening exam and this may not be complete and all inclusive of all the testing and or work up that you may need to determine your ailment or severity of your illness. It is very important that you follow up as instructed or that you return to the Emergency Department should you have concerns or if your condition changes or worsens in any way. Coding Level of Care Code ED Commercial Glazier for Mitch Fong Exam Comprehensive
[2021-07-19] MEDS: HYDROcodone-acetaminophen 7.5-325 mg Tablet 1 TAB PO (14:35)
[2021-07-19] MEDS: sulfamethoxazole-trimeth DS 160-800 mg Tablet 1 TAB PO (14:35)
[2021-07-19 14:40] VITALS: PULSE 75; RESP 16; O2SAT 99
== END 2021-07-19 14:41 | disposition home or self-care (01) ==
PROVIDERS: Emergency Provider Physician Assistant
DX: L03.113 Cellulitis of right upper limb (principal); H10.31 Unspecified acute conjunctivitis, right eye; L02.511 Cutaneous abscess of right hand; F17.210 Nicotine dependence, cigarettes, uncomplicated
CPT/HCPCS: 10060; 73130; 99283

== ENCOUNTER 2022-06-11 07:22 | Emergency (ER) | payer SELFPAY ==
[2022-06-11 07:35] VITALS: BP 132/66; PULSE 84; RESP 18; TEMP 36.5; O2SAT 97
[2022-06-11 07:42] VITALS: BP 121/75; PULSE 80; RESP 18; TEMP 37.4; O2SAT 98
--- NOTE | 2022-06-11 07:50 | PC.NURSE ---
PT DC'D BEFORE FULL ASSESSMENT BY NURSE
[2022-06-11 07:59] VITALS: PULSE 87; RESP 16; O2SAT 99
--- NOTE | 2022-06-11 08:06 | ED_ITS ---
HPI - General Adult General: Chief complaint: General Medical Stated complaint: Throat hurts Time Seen by Provider: 06/11/22 07:28 Source: patient Mode of arrival: ambulatory History of Present Illness: -year-old male presents emergency room with complaint of sore throat for the last 4 to 5 days. Low-grade subjective fever at home nonproductive cough. Moderate myalgias. No vomiting no diarrhea. Onset (ago): day(s) (4) Severity: mild Quality: burning Pain Consistency: constant Relieving factors: none Exacerbating factors: none Associated symptoms: Reports cough and fevers/chills; Deny chest pain, confusion, diaphoresis, decreased appetite, dyspnea, headache(s), malaise, nausea, rash, palpitations, seizures, short of breath, syncope, vomiting or weakness Treatments prior to arrival: none Review of Systems Const: Reports: fever(s); Denies: malaise or diaphoresis ENMT: Reports: throat pain; Denies: ear or mastoid pain, nasal discharge or nasal congestion Card: Denies: chest pain, palpitations or syncope Resp: Denies: dyspnea GI: Denies: abdominal pain, nausea or vomiting : Reports: flank pain; Denies: dysuria, urinary frequency or urinary urgency Musc: Denies: neck pain Skin/Breast: Denies: rash Neuro: Denies: headache(s) or confusion [facility] ED PFSH: Medical History (Updated 06/11/22 @ 08:08 by Bismark Washburn DO) No pertinent family history No significant past medical history Surgical History No pertinent past surgical history Social History Smoking and tobacco status: light tobacco smoker Alcohol intake: never Physical Exam Const: COMMON NORMALS: no acute distress GENERAL APPEARANCE: cooperative and comfortable ORIENTATION/CONSCIOUSNESS: Yes awake, Yes oriented to person, Yes oriented to place and Yes oriented to time HENMT: COMMON NORMALS: normocephalic, atraumatic, hearing grossly normal bilaterally, external ears normal, EAC's normal, TM's normal bilaterally, Normal nasal mucous membranes and turbinates present, moist oral mucous membranes and oropharynx normal HEAD & SCALP: normocephalic and atraumatic NOSE: Normal nasal mucous membranes and turbinates present EXTERNAL EAR: Yes external ears normal EXTERNAL AUDITORY CANAL: EAC's normal TYMPANIC MEMBRANE: TM's normal bilaterally Eye: COMMON NORMALS: Equal, round and reactive pupils present, EOMs intact bilaterally, conjunctivae normal and no scleral icterus CONJUNCTIVA: Yes conjunctivae normal PUPIL: Yes Equal, round and reactive pupils present Neck/C-Spine: COMMON NORMALS: full ROM, no lymphadenopathy and supple Lymph: LYMPHATIC: no lymphadenopathy noted and no lymphedema noted Resp: COMMON NORMALS: normal respiratory effort, No retractions, No use of accessory muscles and clear to auscultation bilaterally AUSCULTATION: clear to auscultation bilaterally Cardio: COMMON NORMALS: regular rate, regular rhythm and No murmurs present (Cardio) RATE: regular rate RHYTHM: regular rhythm Extremity: COMMON NORMALS: normal to inspection, capillary refill normal, no clubbing, cyanosis or edema, no calf tenderness and no pedal edema Neuro: SENSORIUM/ORIENTATION: Yes oriented to person, Yes oriented to place and Yes oriented to time Skin: COMMON NORMALS: no rashes or lesions noted GENERAL SKIN EXAM: no rashes or lesions noted Course Vital Signs: Vital signs: Vital Signs Temperature 99.4 F 06/11/22 07:42 Pulse Rate 87 06/11/22 07:59 Respiratory Rate 16 06/11/22 07:59 Blood Pressure 121/75 06/11/22 07:42 Pulse Oximetry 99 06/11/22 07:59 [facility] - General Adult Medical Decision Making Labs and exam unremarkable. No sign of strep pharyngitis no significant erythema at all of the posterior pharyngeal wall. No submandibular lymphadenopathy may be that he is a very early flu however 4 to 5 days and his symptoms expect him to have more of a fever. Treat as viral pharyngitis supportive cares Tylenol ibuprofen salt water gargles [id number] cough cold remedies throat lozenges sprays etc. follow-up as needed Discharge Plan Discharge Patient Disposition: Home Clinical Impression: Pharyngitis Condition: Stable Prescriptions: Discontinued sulfamethoxazole-trimethoprim [Bactrim DS] 800-160 mg tablet 1 tab PO BID 7 Days Qty: 14 0RF Discharge Orders: Discharge ED (Routine); Ordered 06/11/22 Ordered By: Bismark Washburn Discharge Diet: Usual diet Discharge Activity: Resume usual activity Patient Instructions: Pharyngitis (ED), Opioid Safety, Pain Management Activity Restrictions/Additional Instructions: You were seen today for sore throat. Exam is consistent with a viral pharyngit is. Recommend [id number] cough cold remedies throat lozenges or sprays warm salt water gargles etc. These are usually self-limiting. If your symptoms persist follow-up with your primary care doctor. Coding Level of Care Code ED Nurse Transition for Mitch Fong
== END 2022-06-11 07:55 | disposition home or self-care (01) ==
PROVIDERS: Emergency Provider Family Medicine
DX: J02.9 Acute pharyngitis, unspecified (principal); F17.210 Nicotine dependence, cigarettes, uncomplicated
CPT/HCPCS: 99283

== ENCOUNTER → 2023-03-27 12:40 | Outpatient (BNVA) | payer SELFPAY | PROVIDERS: PCP Family Medicine; Visit Provider Family Medicine | DX: Z13.6 Encounter for screening for cardiovascular disorders (principal) | CPT/HCPCS: 80053; 80061; 83036; 84443; 85025 ==

== ENCOUNTER 2023-06-11 05:24 | Emergency (ER) | payer SELFPAY ==
[2023-06-11 05:33] VITALS: BP 143/104; PULSE 75; RESP 16; TEMP 36.6; O2SAT 98; BMI 26.4
--- NOTE | 2023-06-11 05:33 | W.ED.DENTAL ---
HPI - Dental/Oral General: Chief complaint: Dental/Oral Stated complaint: dental pain Time Seen by Provider: 06/11/23 05:25 Source: patient Mode of arrival: ambulatory Limitations: no limitations History of Present Illness: 42-year-old male states he has had right lower dental pain for the last 2 days. He states the pain is sharp in nature he rates it a 6 out of 10. He has a history of poor dentition he denies any fevers denies any difficulty swallowing denies any worsening proving factors Associated symptoms: Denies fever(s) Review of Systems Const: Denies: fever(s), chills, body aches or change in appetite ENMT: Reports: dental pain; Denies: throat pain Card: Denies: chest pain Resp: Denies: dyspnea GI: Denies: abdominal pain, nausea, vomiting or diarrhea Musc: Denies: neck pain or back pain Skin/Breast: Denies: rash Neuro: Denies: headache(s) PFSH ED PFSH: Medical History Tuberculosis Treated Benign essential HTN Surgical History No pertinent past surgical history Family History Sister Diabetes Grandmother Diabetes Social History Smoking and tobacco/nicotine status: light tobacco/nicotine user Alcohol intake: never Substance/Drug Use: current Substance/Drug use frequency: few times a week Physical Exam Const: COMMON NORMALS: patient oriented x3 HENMT: COMMON NORMALS: normocephalic and atraumatic HEAD & SCALP: normocephalic and atraumatic OTHER: Poor dentition with tenderness over right lower molar no abscess no trismus Eye: COMMON NORMALS: conjunctivae normal CONJUNCTIVA: Yes conjunctivae normal Neck/C-Spine: COMMON NORMALS: full ROM and supple Chest: COMMONS NORMALS: normal inspection of the chest Resp: COMMON NORMALS: normal respiratory effort GI: INSPECTION: Yes normal to inspection Extremity: COMMON NORMALS: normal to inspection and full ROM Neuro: COMMON NORMALS: patient oriented x3, moves all extremities and no focal motor deficits Psych: COMMON NORMALS: mental status grossly normal, Normal thought process present and cooperative THOUGHT PROCESS: Normal thought process present Skin: COMMON NORMALS: no rashes or lesions noted and no wounds GENERAL SKIN EXAM: no rashes or lesions noted Course Vital Signs: Vital signs: Vital Signs Temperature 98 F 06/11/23 05:33 Pulse Rate 75 06/11/23 05:33 Respiratory Rate 16 06/11/23 05:33 Blood Pressure 143/104 06/11/23 05:33 Pulse Oximetry 98 06/11/23 05:33 Oxygen Delivery Me thod Room Air 06/11/23 05:33 MDM - Dental/Oral Medical Decision Making Patient presents here with dental pain he has no abscess or trismus we will place him on antibiotics along with anti-inflammatories he is to follow-up with a dentist return if worsening he understands agrees to plan Medical Records I reviewed the patient's medical records. No radiology studies performed this visit Discharge Plan Discharge Patient Disposition: Home Clinical Impression: Toothache Condition: Stable Prescriptions: New cephalexin 500 mg capsule 500 mg PO TID 7 Days Qty: 21 0RF Naprosyn 500 mg tablet 500 mg PO BID PRN (Reason: pain) Qty: 20 0RF No Action ibuprofen 600 mg tablet 600 mg PO Q8H PRN (Reason: pain) Qty: 30 0RF metformin 500 mg tablet 500 mg PO DAILY Qty: 30 0RF Discharge Orders: Discharge ED (Routine); Ordered 06/11/23 Ordered By: Christine Matute Referrals: Natasha Meraz DO [Primary Care Provider] - 1-3 days Discharge Diet: Advance as tolerated Discharge Activity: Resume usual activity Patient Instructions: Toothache (ED) Coding Level of Care Code ED Circulation Analyst for Mitch Fong
[2023-06-11] MEDS: cephALEXin 500 mg Capsule PO (05:38)
[2023-06-11] MEDS: naproxen 500 mg Tablet PO (05:38)
[2023-06-11 05:51] VITALS: PULSE 73; RESP 18; O2SAT 98
== END 2023-06-11 05:52 | disposition home or self-care (01) ==
PROVIDERS: Emergency Provider Emergency Medicine; PCP Family Medicine
DX: K08.89 Other specified disorders of teeth and supporting structures (principal); Z72.0 Tobacco use; I10 Essential (primary) hypertension
CPT/HCPCS: 99283

== ENCOUNTER 2023-12-03 19:16 | Emergency (ER) | payer BC, SELFPAY ==
[2023-12-03 19:26] VITALS: BP 128/80; PULSE 85; RESP 16; O2SAT 98; BMI 25.1
--- NOTE | 2023-12-03 19:26 | ED_ITS ---
HPI - Abdominal Pain General: Chief Complaint: Abdominal Pain Stated Complaint: constipation Time Seen by Provider: 12/03/23 19:24 History of Present Illness: 43-year-old male patient reports no gypsy l movement since incarceration 4 days ago. Patient was brought in by law enforcement, [facility]. Patient appears in no pain. Patient denies any chronic medical problems. Associated Symptoms: Reports constipation; Denies fever(s) Review of Systems General: Reports: 10 or more systems reviewed and unremarkable except in HPI and below Const: Denies: fever(s) GI: Reports: constipation PFSH ED PFSH: Medical History Tuberculosis Treated Benign essential HTN Surgical History No pertinent past surgical history Family History Sister Diabetes Grandmother Diabetes Social History Smoking and tobacco/nicotine status: light tobacco/nicotine user Alcohol intake: never Substance/Drug Use: current Substance/Drug use frequency: few times a week Physical Exam Const: COMMON NORMALS: alert HENMT: COMMON NORMALS: normocephalic HEAD & SCALP: normocephalic Neck/C-Spine: COMMON NORMALS: full ROM Resp: COMMON NORMALS: normal respiratory effort and clear to auscultation bilaterally AUSCULTATION: clear to auscultation bilaterally Cardio: COMMON NORMALS: regular rate and regular rhythm RATE: regular rate RHYTHM: regular rhythm GI: COMMON NORMALS: Soft to palpation and non-tender PALPATION: Yes Soft to palpation : COMMON NORMALS: Yes no CVA tenderness BLADDER/KIDNEY EXAM: Yes no CVA tenderness Back/Pelvis: COMMON NORMALS: no CVA tenderness Extremity: COMMON NORMALS: normal to inspection Neuro: SENSORIUM/ORIENTATION: Yes alert Skin: COMMON NORMALS: turgor normal GENERAL SKIN EXAM: turgor normal Course Vital Signs: Vital signs: Vital Signs Pulse Rate 85 12/03/23 19:26 Respiratory Rate 16 12/03/23 19:26 Blood Pressure 128/80 12/03/23 19:26 Pulse Oximetry 98 12/03/23 19:26 Oxygen Delivery Me thod Room Air 12/03/23 19:26 MDM - Abdominal Pain Medical Decision Making 43-year-old male patient comes in today with complaints of constipation. On exam patient appears no pain. Abdomen flat. Bowel sounds are present. Skin is warm and dry. Differential diagnosis constipation, bowel obstruction, malingering. Abdominal x-ray noted stool throughout the colon without any signs of obstruction. Patient was given a dose of Constulose and milk of magnesia and encouraged to drink plenty of water. Patient was prescribed some MiraLAX and milk of magnesia otherwise for further treatment of constipation. Patient reports understanding of care plan need for follow-up or return to the ER. XR interpretation done by ED provider, pending radiology final review Discharge Plan Discharge Patient Disposition: Home Clinical Impression: Constipation Qualifiers: Constipation type: unspecified constipation type Qualified Code(s): K59.00 - Constipation, unspecified Condition: Stable Prescriptions: New ClearLax 17 gram/dose powder 17 g PO DAILY Qty: 238 0RF Milk of Magnesia 400 mg/5 mL suspension 20 ml PO BID PRN (Reason: constipation) Qty: 355 0RF No Action ibuprofen 600 mg tablet 600 mg PO Q8H PRN (Reason: pain) Qty: 30 0RF amoxicillin-pot clavulanate 875-125 mg tablet 1 tab PO BID 7 Days Qty: 14 0RF ibuprofen 800 mg tablet 800 mg PO Q8H PRN (Reason: pain) Qty: 30 0RF Naprosyn 500 mg tablet 500 mg PO BID PRN (Reason: pain) Qty: 20 0RF Discharge Orders: Discharge ED (Routine); Ordered 12/03/23 Ordered By: Go Chakraborty Referrals: Natasha Meraz DO [Primary Care Provider] - Discharge Diet: Usual diet Discharge Activity: Increase activity as tolerated Patient Instructions: Constipation (ED) Activity Restrictions/Additional Instructions: Drink plenty of water and fluids. Take MiraLAX daily to help keep fluid in the bowel so you have easier passage of stool. Use milk of magnesia twice daily as needed for constipation. Follow-up with primary care for further instructions. Return to ED for new concerns. Coding Level of Care Code ED School Resource Officer for Mitch Fong
--- NOTE | 2023-12-03 19:27 | XRR_ITS ---
PROCEDURE INFORMATION: Exam: XR Abdomen Exam date and time: 12/03/2023 7:37 PM Age: 43 years old Clinical indication: Bloating and constipation; Patient HX: Constipation; Abdominal distention TECHNIQUE: Imaging protocol: Radiologic exam of the abdomen. Views: Frontal supine view of the abdomen. 1 View. COMPARISON: CR XR chest 2V* [id number] 06/01/2018 12:24 AM FINDINGS: Gastrointestinal tract: Moderate to severe constipation, negative for bowel dilation to indicate obstruction. Bones/joints: Unremarkable. XR/XR KUB [id number] IMPRESSION: Moderate to severe constipation, negative for bowel dilation to indicate obstruction.
[2023-12-03] MEDS: lactulose oral liq 20 gm/30 mL UDC PO (19:49)
[2023-12-03] MEDS: magnesium hydroxide 30 mL UDC PO (19:49)
== END 2023-12-03 19:54 | disposition home or self-care (01) ==
PROVIDERS: Emergency Provider Nurse Practitioner Family; PCP Family Medicine
DX: K59.00 Constipation, unspecified (principal); I10 Essential (primary) hypertension; Z72.0 Tobacco use
CPT/HCPCS: 74018; 99283

== ENCOUNTER 2025-03-17 22:33 | Emergency (ER) | payer BC, SELFPAY ==
[2025-03-17 22:44] VITALS: BP 125/82; PULSE 98; RESP 17; TEMP 36.9; O2SAT 100; BMI 25.1
--- NOTE | 2025-03-17 23:27 | W.ED.DENTAL ---
HPI - Dental/Oral General: Chief complaint: Dental/Oral Stated complaint: abscess tooth RT top side Time Seen by Provider: 03/17/25 22:43 History of Present Illness: Patient presenting the emergency department with painful swelling to his right upper central and lateral incisor where he has a chronic cracked tooth in the setting of underlying generally poor dentition. Reports over the last 2 days to start developing pain and swelling which is a new finding, no fevers, no difficulty swallowing Related Data Previous Rx's ?Medication ?Instructions ?Recorded ibuprofen 600 mg tablet 600 mg PO Q8H PRN pain #30 tabs 06/11/22 naproxen 500 mg tablet (Naprosyn) 500 mg PO BID PRN pain #20 tabs 06/11/23 ibuprofen 800 mg tablet 800 mg PO Q8H PRN pain #30 tabs 09/08/23 amoxicillin 875 mg-potassium 1 tab PO BID 7 days #14 tabs 10/12/23 clavulanate 125 mg tablet magnesium hydroxide 400 mg/5 mL 20 ml PO BID PRN constipation #355 12/03/23 oral suspension (Milk of Magnesia) mL polyethylene glycol 3350 17 17 g PO DAILY #238 grams 12/03/23 gram/dose oral powder (ClearLax) amoxicillin 875 mg-potassium 1 tab PO Q12H 7 days #14 tabs 03/17/25 clavulanate 125 mg tablet Allergies Allergy/AdvReac Type Severity Reaction Status Date / Time No Known Allergies Allergy Verified 10/12/23 15:12 [facility] ED PFSH: Medical History (Updated 03/17/25 @ 23:30 by José Miguel Shoemaker MD) Tuberculosis Treated Benign essential HTN Surgical History No pertinent past surgical history Family History Sister Diabetes Grandmother Diabetes Social History Smoking and tobacco/nicotine status: light tobacco/nicotine user Alcohol intake: never Substance/Drug Use: current Substance/Drug use frequency: few times a week Physical Exam Narrative: EXAM NARRATIVE: Gen: A&Ox4, no acute distress, nontoxic appearing HEENT: Normocephalic, atraumatic, no scleral icterus, external ears normal, moist mucous membranes, dentition is overall poor with multiple cracked teeth and caries, the right upper lateral incisor and canine are both cracked with gingival erythema, no large abscess, no external facial swelling Neck: Supple, full range of motion, no observable masses Course Vital Signs: Vital signs: Vital Signs Temperature 98.5 F 03/17/25 22:44 Pulse Rate 114 H 03/17/25 23:37 Respiratory Rate 17 03/17/25 22:44 Blood Pressure 149/86 03/17/25 23:37 Pulse Oximetry 100 03/17/25 23:37 Oxygen Delivery Me thod Room Air 03/17/25 22:44 MDM - Dental/Oral Medical Decision Making 44-year-old male no significant chronical medical issues although does have a history of poor dental hygiene, presenting the emergency department with chronically cracked teeth multiple with new onset pain and swelling to his site consistent with early dental infection, no significant signs of sepsis or osteomyelitis clinically, plan for initiate antibiotics, NSAIDs for pain control, dental follow-up strongly recommended. No radiology studies performed this visit Discharge Plan Discharge Patient Disposition: Home Clinical Impression: Dental caries, Toothache Condition: Stable Prescriptions: New amoxicillin-pot clavulanate 875-125 mg tablet 1 tab PO Q12H 7 Days Qty: 14 0RF No Action ibuprofen 600 mg tablet 600 mg PO Q8H PRN (Reason: pain) Qty: 30 0RF amoxicillin-pot clavulanate 875-125 mg tablet 1 tab PO BID 7 Days Qty: 14 0RF ibuprofen 800 mg tablet 800 mg PO Q8H PRN (Reason: pain) Qty: 30 0RF Naprosyn 500 mg tablet 500 mg PO BID PRN (Reason: pain) Qty: 20 0RF ClearLax 17 gram/dose powder 17 g PO DAILY Qty: 238 0RF Milk of Magnesia 400 mg/5 mL suspension 20 ml PO BID PRN (Reason: constipation) Qty: 355 0RF Discharge Orders: Discharge ED (Routine); Ordered 03/17/25 Ordered By: José Miguel Shoemaker Referrals: Natasha Meraz DO [Primary Care Provider, Family Practice] Patient Instructions: Dental Abscess (ED), Patient Portal & Paula Instructions Activity Restrictions/Additional Instructions: Follow-up with a dentist as soon as possible for definitive management and evaluation of your tooth related issues. Print Language: Danish Coding Level of Care Code ED Manager Of Recruiting for Mitch Fong
[2025-03-17 23:37] VITALS: BP 149/86; PULSE 114; O2SAT 100
== END 2025-03-17 23:35 | disposition home or self-care (01) ==
PROVIDERS: Emergency Provider Student in an Organized Health Care Education/Training Program; PCP Family Medicine
DX: K02.9 Dental caries, unspecified (principal); K08.89 Other specified disorders of teeth and supporting structures; Z72.0 Tobacco use; I10 Essential (primary) hypertension
CPT/HCPCS: 99283; J9999